=== PATIENT | female | born 1985 | race Caucasian/White ===

== ENCOUNTER 2016-07-12 10:11 | Emergency (ER) | payer MEDICAID, OTHER ==
[2016-07-12 11:43] LABS: ABSOLUTE BASOPHILS # (AUTO) 0.1 10^3/uL (0.0-0.2); ABSOLUTE LYMPHOCYTES (AUTO) 1.9 10^3/uL (0.5-4.7); ABSOLUTE MONOCYTES (AUTO) 0.5 10^3/uL (0.1-1.4); ABSOLUTE NEUT (AUTO) 6.3 10^3/uL (1.7-8.2); BASOPHILS % (AUTO) 0.6 % (0-2); EOSINOPHILS % (AUTO) 0.5 % (0-6); LYMPHOCYTES % (AUTO) 21.7 % (13-45); MEAN CORPUSCULAR HEMOGLOBIN 28.6 pg (27.0-33.4); MEAN CORPUSCULAR HGB CONC 33.3 g/dL (32.0-36.0); MEAN CORPUSCULAR VOLUME 86 fl (80-97); MONOCYTES % (AUTO) 6.1 % (3-13); RED BLOOD COUNT 5.24 10^6/uL (3.72-5.28); RED CELL DISTRIBUTION WIDTH 14.3 % (11.5-14.0); SEGMENTED NEUTROPHILS % (AUTO) 71.1 % (42-78); WHITE BLOOD COUNT 8.8 10^3/uL (4.0-10.5)
[2016-07-12 11:45] LABS: APPEARANCE,URINE SLIGHTLY-CLOUDY; BILIRUBIN,URINE NEGATIVE (NEGATIVE); GLUCOSE, URINE NEGATIVE (NEGATIVE); KETONES,URINE TRACE mg/dL (NEGATIVE); LEUKOCYTE ESTERASE,URINE TRACE (NEGATIVE); NITRITE,URINE NEGATIVE (NEGATIVE); PROTEIN,URINE NEGATIVE (NEGATIVE); URINE SPECIFIC GRAVITY 1.021; UROBILINOGEN,URINE NEGATIVE mg/dL (<2.0)
[2016-07-12 12:04] LABS: ALANINE AMINOTRANSFERASE 28 U/L (9-52); ALBUMIN 4.7 g/dL (3.5-5.0); ALKALINE PHOSPHATASE 57 U/L (38-126); ANION GAP 13 (5-19); ASPARTATE AMINO TRANSFERASE 19 U/L (14-36); BLOOD UREA NITROGEN 15 mg/dL (7-20); CALCIUM 9.8 mg/dL (8.4-10.2); CARBON DIOXIDE 22 mmol/L (22-30); CHLORIDE 104 mmol/L (98-107); CREATININE RESULT 0.77 mg/dL (0.52-1.25); GLUCOSE 83 mg/dL (75-110); LIPASE 75.3 U/L (23-300); POTASSIUM 4.4 mmol/L (3.6-5.0); SODIUM 139.1 mmol/L (137-145); TOTAL PROTEIN 7.6 g/dL (6.3-8.2)
--- NOTE | 2016-07-12 14:44 | ER Document Report ---
ED GI/ - General Chief Complaint: Abdominal Pain Stated Complaint: RECTAL BLEEDING ABDOMINAL PAIN Time seen by provider: 14:44 Mode of Arrival: Ambulatory Information source: Patient Notes: 31-year-old female has a red blood dripping into the toilet or on the toilet tissue after sitting on the toilet for urination or bowel movement. She has no anal pain. For a day and a half she's been having low pelvic pain all the way across, which started after intercourse Tuesday with her who told her recently that he was leaving her. She always has dyspareunia and no vaginal discharge with an odor. No dysuria. Her CBC, chemistry, and urinalysis have been resulted and they are normal. No constipation or diarrhea. No fever. Hx 2 c sections and BTL. TRAVEL OUTSIDE OF THE [place] IN LAST 30 DAYS: No - Related Data Allergies/Adverse Reactions: latex Allergy (Verified 07/12/16 10:46) Past Medical History - General Information source: Patient - Social History Smoking Status: Never Smoker Chew tobacco use (# tins/day): No Frequency of alcohol use: None Drug Abuse: None Lives with: Spouse/Significant other Family History: Reviewed & Not Pertinent Patient has suicidal ideation: No Patient has homicidal ideation: No - Medical History Medical History: Negative Renal/ Medical History: Denies: Hx Peritoneal Dialysis Psychiatric Medical History: Reports: Hx Depression Past Surgical History: Reports: Hx Section - Immunizations Hx Diphtheria, Pertussis, Tetanus Vaccination: Yes Review of Systems - Review of Systems Constitutional: No symptoms reported EENT: No symptoms reported Cardiovascular: No symptoms reported Respiratory: No symptoms reported Gastrointestinal: See HPI Genitourinary: No symptoms reported Female Genitourinary: See HPI Musculoskeletal: No symptoms reported Skin: No symptoms reported Hematologic/Lymphatic: No symptoms reported Neurological/Psychological: No symptoms reported Physical Exam - Vital signs Vitals: Temp Pulse Resp BP Pulse Ox 98.9 F 82 16 124/74 98 07/12/16 10:42 07/12/16 10:42 07/12/16 10:42 07/12/16 10:42 07/12/16 10:42 Interpretation: Normal - General General appearance: Appears well, Alert In distress: None - HEENT Head: Normocephalic, Atraumatic Eyes: Normal Pupils: PERRL Neck: Supple - Respiratory Respiratory status: No respiratory distress Chest status: Nontender Breath sounds: Normal Chest palpation: Normal - Cardiovascular Rhythm: Regular Heart sounds: Normal auscultation Murmur: No - Abdominal Inspection: Normal Distension: No distension Bowel sounds: Normal Tenderness: No: Tender - mild pelvis all the way across Organomegaly: No organomegaly. No: Hepatomegaly, Splenomegaly - Genitourinary Speculum exam: Normal, Vaginal discharge - Creamy yellow it os Vaginal bleeding: None Bimanuel exam: Cervical motion tender - Mild - Back Back: Normal, Nontender. No: CVA tenderness - Extremities General upper extremity: Normal inspection, Nontender, Normal color, Normal ROM , Normal temperature General lower extremity: Normal inspection, Nontender, Normal color, Normal ROM , Normal temperature, Normal weight bearing. No: Delmer's sign - Neurological Neuro grossly intact: Yes Cognition: Normal Orientation: AAOx4 Joshua Coma Scale Eye Opening: Spontaneous Jaffrey Coma Scale Verbal: Oriented Jaffrey Coma Scale Motor: Obeys Commands Jaffrey Coma Scale Total: 15 Speech: Normal Motor strength normal: LUE, RUE, LLE, RLE Sensory: Normal - Psychological Associated symptoms: Normal affect, Normal mood - Skin Skin Temperature: Warm Skin Moisture: Dry Skin Color: Normal Skin irregularity: negative: Rash Course - Re-evaluation Re-evalutation: 07/12/16 16:[address] yarbrough for the US 07/12/16 19:12 Right ovary was not visualized on ultrasound due to overlying bowel gas which I explained to pt, and that if she develped worsening right pelvic pain she must come back for recheck. It does look like the patient has bacterial vaginosis I will treat her with Flagyl. The left ovary is normal. 07/13/16 19:29 - Vital Signs Vital signs: Temp Pulse Resp BP Pulse Ox 98.5 F 86 18 119/71 96 07/12/16 19:42 07/12/16 19:42 07/12/16 19:42 07/12/16 19:42 07/12/16 19:42 - Laboratory Result Diagrams: 07/12/16 11:22 07/12/16 11:22 Laboratory results interpreted by me: 07/12/16 07/12/16 11:22 11:22 RDW 14.3 H Urine Ketones TRACE H Ur Leukocyte Esterase TRACE H Discharge - Discharge Clinical Impression: bleeding anal fissure, pelvic pain, Bacterial vaginosis Condition: Good Disposition: HOME, SELF-CARE Instructions: Pelvic Pain ([facility]), Vaginosis, Bacterial ([facility]), Metronidazole ([facility] ), Anal Fissure ([facility]) Additional Instructions: no douching no alcohol with the metronidazole to er if worse std cultures were negative. urine culture is pending vaseline to anus to heal the anal skin that is bleeding do not strain or sti on toilet for long periods of time the right ovary was not seen on the ultrasound due to overlying bowel gas Prescriptions: Metronidazole 500 mg PO BID #14 tablet Forms: Return to Work Referrals: MARY JANE DAMON PA-C [Primary Care Provider] - Follow up as needed
--- NOTE | 2016-07-12 14:45 | ER Document Report ---
ED GI/ - General Chief Complaint: Abdominal Pain Stated Complaint: RECTAL BLEEDING ABDOMINAL PAIN TRAVEL OUTSIDE OF THE [place] IN LAST 30 DAYS: No - Related Data Allergies/Adverse Reactions: latex Allergy (Verified 07/12/16 10:46) Past Medical History - Social History Smoking Status: Never Smoker Chew tobacco use (# tins/day): No Frequency of alcohol use: None Drug Abuse: None Patient has suicidal ideation: No Patient has homicidal ideation: No Renal/ Medical History: Denies: Hx Peritoneal Dialysis Psychiatric Medical History: Reports: Hx Depression Past Surgical History: Reports: Hx Section - Immunizations Hx Diphtheria, Pertussis, Tetanus Vaccination: Yes Physical Exam - Vital signs Vitals: Temp Pulse Resp BP Pulse Ox 98.9 F 82 16 124/74 98 07/12/16 10:42 07/12/16 10:42 07/12/16 10:42 07/12/16 10:42 07/12/16 10:42 Course - Vital Signs Vital signs: Temp Pulse Resp BP Pulse Ox 98.9 F 82 16 124/74 98 07/12/16 10:42 07/12/16 10:42 07/12/16 10:42 07/12/16 10:42 07/12/16 10:42 - Laboratory Result Diagrams: 07/12/16 11:22 07/12/16 11:22 Laboratory results interpreted by me: 07/12/16 07/12/16 11:22 11:22 RDW 14.3 H Urine Ketones TRACE H Ur Leukocyte Esterase TRACE H
[2016-07-12] MEDS ORDERED: ONDANSETRON 4 MG TAB.RAPDIS PO ONE (16:28)
[2016-07-12] MEDS ORDERED: AZITHROMYCIN 250 MG TABLET PO ONE (16:28)
[2016-07-12 18:04] LABS: CHLAM PCR NOT DETECTED (NOT DETECT)
[2016-07-12 19:44] VITALS: BP 119/71
== END 2016-07-12 19:42 | disposition home or self-care (01) ==
LOC: ER 10:11
DX: N76.0 Acute vaginitis (principal); B96.89 Other specified bacterial agents as the cause of diseases classified elsewhere; K60.2 Anal fissure, unspecified; R10.2 Pelvic and perineal pain; Z91.040 Latex allergy status
CPT/HCPCS: 99284; 36415; 87210; 84702; 83690; 85025; 82272; 80053; 81001; 87491; 87591; 76830; 93976; S0119